=== PATIENT | male | born 1945 | race Caucasian/White ===

== ENCOUNTER → 2020-06-14 | Outpatient (CLI) | payer OTHER, BC ==
[~2020-06-14] VITALS: Ht 188 cm; Wt 146.9 kg
[~2020-06-14] MED LIST: AMOXICILLIN 50500 MG PO; ASPIRIN325 PO; CARVEDILOL3.125 MG PO; COZAAR 25 MG TA25 M1 PO; FISH OIL 1,2001 EACH PO; FUROSEMIDE 40 M40 MG PO; GLIMEPIRIDE4 MG PO; HUMALOG JU100 UNIT/1 SUBQ; IMDUR 30 MG TAB30 M1 PO; JARDIANCE25 MG PO; LANTUS100 UNIT/M SUBQ; NEURONTIN100 MG PO; NITROSTAT0.4 M1 SUBLING; NORCO 5-325 TA1 EAC2 PO; OMEPRAZOLE 20 M20 M1 PO; RELAFEN500 M1 PO; RESTASIS1 EACH OPHTHALMIC
[2020-06-14 08:40] VITALS: BP 185/75
--- NOTE | 2020-06-14 08:52 | NUR ---
Pain Clinic Assessment: 1. History of Osteoarthritis: Not Applicable History of Rheumatoid Arthritis: Not Applicable 2. Height: 6 ft. 2 in. 188.0 cm. Weight: 323.8 lb. oz. 146.875 kg. Patient's BMI: 41.6 3. Vital Signs: BP: 185/75 Pulse: 108 Resp: 18 Temp: 02 Sat: 95 ECG Mon: 4. Pain Intensity: 7-9 5. Fall Risk: Dizziness: N Needs help standing or walking: N Fallen in the last 3 months: N Fall risk comments: 6. Patient on Blood Thinner: None 7. History of Hypertension: Y 8. Opioid Therapy greater than 6 weeks: Y Opiate Contract Signed: 9. Risk Assessment Tool Provided: 10. Functional Assessment Tool: 0 11. Recreational Drug Use: Never Drug Type: Tobacco Use: Never Smoker Tobacco Type: Amount or Packs/day: How Many Years: Alcohol Use: Yes Frequency: Monthly Quant: 2
--- NOTE | 2020-06-14 14:37 | HPC ---
[facility] [place] [address] PAIN MANAGEMENT CONSULTATION Name: ALYSSA HANSON Room #: REG PAM Eddi.#: [id number] Admission: 06/14/20 Attend Phys: Mode Phillips DO Discharge: Date of : 47 Report #: [id number] THIS REPORT FOR: cc: SEAMUS DIXON Physician not on staff Mode Phillips DO ~ DATE OF SERVICE: 06/14/2020 REFERRING PHYSICIAN: Dr. Seamus Dixon. CHIEF COMPLAINT: Bilateral knee pain. HISTORY OF PRESENT ILLNESS: As you know, the patient is a very pleasant 75-year-old male who reports a near 2-year history of ongoing bilateral knee pain. The patient has undergone total knee arthroplasty on the left, approximately 12/2018 with improvement in his typical pain, but continues to experience symptoms that he rates at a level of 7/10 from a pain standpoint, exacerbated with any type of movement and weightbearing. He continues to experience right knee pain due to progressively worsening osteoarthritic changes. The patient is concerned about a total knee arthroplasty on the right, given his lack of improvement on the left. He states he has followed up with his orthopedic surgeon and they have advised him that the positioning of the device appears appropriate in the left knee. He has been referred to our service to discuss options for treatment. He is denying any specific injury or trauma to either of the knees. He has had a slow and progressive worsening of osteoarthritic changes, which have been diagnosed in the past. He is currently taking conservative treatment via oral medications with minimal benefit. The patient reports today his pain is continuous. He describes the pain as more of an aching and sharp sensation. He places current pain score 7/10, daily average at 7/10, worst pain has been is 9/10. The patient states the pain is exacerbated with "sitting long periods of time and weightbearing such as walking." He states pain is improved with CBD oil, but only for a short period of time. He has been referred to our service to discuss interventional treatment options to address bilateral knee pain. PAST MEDICAL HISTORY: 1. Diabetes mellitus type 2. 2. Hypertension. 3. Coronary artery disease. 4. History of colon cancer. 5. Morbid obesity. 6. Osteoarthritis. PAST SURGICAL HISTORY: 1. Appendectomy. [address] [address] PAIN MANAGEMENT CONSULTATION Name: ALYSSA HANSON Room #: REG [facility].Rose.#: [id number] Admission: 06/14/20 Attend Phys: Mode Phillips DO Discharge: Date of : 47 Report #: [id number] 2. Colon resection secondary to cancer. SOCIAL HISTORY: The patient denies tobacco, alcohol, IV or illicit drug use. 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 He is working, not receiving workmen's compensation nor is he trying to obtain discrete benefits. He is accompanied by his present in room today. IMAGING: There is no imaging available. PAIN SCORE: Pain impact score 35/70, indicating moderate interference of daily activities secondary to pain. 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 All other review of systems negative per 12-point review of systems other than those listed in history of present illness. ALLERGIES: MORPHINE AND STATINS. CURRENT MEDICATIONS: Restasis 1 drop each eye per day, aspirin 325 mg per day, omega-3 fish oil 1 tablet per day, amoxicillin 500 mg p.r.n. prior to procedures, Jardiance 25 mg once a day, carvedilol 3.125 mg b.i.d., omeprazole 20 mg per day, nitroglycerin p.r.n., glimepiride 4 mg b.i.d., Humalog sliding scale 12 units typical, Lantus 40 units subcutaneous twice a day, furosemide 40 mg per day, losartan 50 mg per day, isosorbide dinitrate 30 mg once a day, gabapentin 100 mg t.i.d., hydrocodone/acetaminophen 5/325 one tablet p.o. q.6 hours p.r.n. pain. PQRS: The patient has known arthritic changes of the bilateral knees, status post left total knee arthroplasty, bilateral hip osteoarthritis, bilateral shoulder osteoarthritis and lumbar spine osteoarthritis. No rheumatoid arthritis. He is placing current pain score of 7-9/10. He is not a fall risk, has not had a fall in last 3 months. He is not on blood thinners, but is treated for hypertension. He is on chronic opioids, has a low opiate addiction potential based on our assessment tool. Pain impact 35/70. PHYSICAL EXAMINATION: VITAL SIGNS: Blood pressure 185/75, pulse 108, respiratory rate 18 and unlabored. The patient is 95% on room air. Height 6 feet 2 inches tall, weight 223.8 pounds and BMI calculated 41.6. GENERAL: Well-developed, well-nourished, well-hydrated, class III, morbidly obese 75-year-old male appearing his stated age. He is in no acute distress, [address] [address] PAIN MANAGEMENT CONSULTATION Name: ALYSSA HANSON Room #: REG [facility].#: [id number] Admission: 06/14/20 Attend Phys: Mode Phillips DO Discharge: Date of : 47 Report #: [id number] awake, alert and oriented x 3. Current pain score is rated 7-9/10. HEENT: Normocephalic and atraumatic. Pupils are equal, round and reactive. NEUROLOGIC: Speech is fluent. The patient is wearing a mask in compliance with COVID-19 regulations. LUNGS: Appear clear. No wheezes, rhonchi or rales. CARDIOVASCULAR: Tachycardic without appreciable gallop or rub. ABDOMEN: Soft, obese. Bowel sounds are present. EXTREMITIES: Show no clubbing, no appreciable cyanosis or edema. MUSCULOSKELETAL: Active and passive range of motion of the left knee is met with increasing pain on the lateral aspect of that knee. There does not appear to be any pain generated with maneuver on the medial aspect of the knee. There are well-healed surgical scars over the left knee consistent with a total knee arthroplasty. Weightbearing from a seated position cause intensification of pain directly over the lateral aspect of the left knee. Active and passive range of motion of the right knee, met with crepitus and increasing pain. There is limitation of motion. Pain is elicited with standing from a seated position on the right as well. The collateral ligaments, both medial and lateral appeared intact on the right. There is no laxity on the left. Drawer test negative. ASSESSMENT: 1. Bilateral knee pain. 2. Continued pain, status post left total knee arthroplasty. 3. Right knee osteoarthritis. 4. Right knee pain. PLAN: 1. Based on today's physical exam and history the patient has provided, the description the patient uses in regard to pain as well as those provocating factors that lead to increasing pain. It would appear the patient is suffering from 2 different pain generators on the right. It is a continued osteoarthritic pain due to "bone on bone degeneration." The patient has been advised a total knee arthroplasty would be recommended, but given his lack of improvement with the left total knee arthroplasty, he is not considering this as an option at present. We discussed with the patient treatment options to address the right knee pain. We also discussed the options to treat the left knee pain status post total knee arthroplasty with failure secondary to continued pain, specifically laterally. The following was discussed with the patient. In regard to the left knee where the total knee arthroplasty was completed. Treatment options are somewhat limited, but could include the following, these could include physical therapy, stretching exercises and continued mobility on that knee in essence to desensitize the patient to the symptoms he is experiencing laterally. We discussed suggestions in medication management can be fulfilled through his primary care team. These would be either continuation of pain medications or the addition of a nonsteroidal anti-inflammatory in [address] [address] PAIN MANAGEMENT CONSULTATION Name: ALYSSA HANSON Room #: REG CLBrown Nixon#: [id number] Admission: 06/14/20 Attend Phys: Mode Phillips DO Discharge: Date of : 47 Report #: [id number] conjunction with his current pain medications. We discussed genicular nerve blocks with possible radiofrequency lesioning of the genicular nerves, which tend to improve pain, status post total knee arthroplasty. We also discussed a revision of the total knee arthroplasty. After reviewing risks and benefits, the patient chose to begin with adjustments in medication management. In regard to the patient's right knee pain, treatment options would include physical therapy, stretching exercises and a weight loss as a treatment course. We discussed medication management adding a nonsteroidal anti-inflammatory in conjunction with current pain medication. We discussed intra-articular knee injections with steroids and possibly intra-articular knee injections with Synvisc as a treatment course. We also discussed surgical procedures with the patient, which based on his recollection of imaging will likely be necessary. After reviewing the risks and benefits of all the proposed treatment options in regard to the right knee, he chose to begin with medication management. 2. I recommend the patient follow up with his orthopedic surgeon in regard to his ongoing left knee pain the fact that he is a year and a half out and continues to experience lateral knee pain. There may be a stability issue or possibly alignment issue that needs to be addressed. The patient indicates that he has discussed this with his orthopedic surgeon before and they felt there was no concerning findings. I have recommended the possibility of a second opinion in regard to this issue. The patient is agreeable and would like a referral for a second opinion in regard to the left knee, but also to discuss options from a surgical standpoint to address the right knee issue. We have agreed to provide the patient with a referral to Dr. Wilian Quintero. He was given the referral today. He will contact Dr. Quintero in the office at his earliest convenience to make an appointment to be evaluated. 3. The patient will be sent for x-ray imaging of both the left and right knees. This will complete the evaluation for Dr. Quintero. The patient will undergo the x-ray imaging as quickly as possible. I have advised the patient to take the disk of the imaging with him to Dr. Quintero's office for evaluation and review. The patient will undergo x-ray imaging at his earliest convenience. 4. We will start the patient on nabumetone 500 mg dose 1 tablet p.o. t.i.d. I have given the patient a 500 mg tablet to take 3 times a day with meals. I have advised the patient to watch for side effects of dyspepsia, worsening of blood pressure, lower extremity edema. If he notes any side effects, discontinue immediately. He can contact our clinic with any questions or concerns. We did advise the patient of the theoretical risk of nonsteroidal anti-inflammatories on cardiovascular health. He understands his risks and wishes to try the medication to determine if his symptoms can improve. 5. We will contact the pain management clinic in [place] and in [place], [place], two of the physicians in those facilities to perform genicular nerve blocks and radiofrequency lesioning of the genicular nerves. We will contact their clinic and determine which would be the most convenient for the patient. We will then have the patient seen to discuss those options for treatment if he [address] [address] PAIN MANAGEMENT CONSULTATION Name: ALYSSA HANSON Room #: REG PAM Nixon#: [id number] Admission: 06/14/20 Attend Phys: Mode Phillips DO Discharge: Date of : 47 Report #: [id number] wishes to do so. We have provided the patient with the name of these 2 physicians, but will contact him later today to advise which we would recommend to be seen from a convenient standpoint, but also performed this procedure. 6. We wish to thank the referring physician for the opportunity to see this patient in consultation. We will keep you apprised of response to treatment as we address bilateral knee pain due to osteoarthritis and failed left total knee arthroplasty. Again, we wish to thank you for the opportunity to see the patient in consultation. <ELECTRONICALLY SIGNED> By: Mode Phillips DO 06/14/20 [id number] Mode Phillips DO /nt
== END ==
LOC: PAIN 06:47
PROVIDERS: ATTEND Anesthesiology Pain Medicine
DX: M17.11 Unilateral primary osteoarthritis, right knee (principal); M25.562 Pain in left knee; Z88.8 Allergy status to other drugs, medicaments and biological substances; Z79.899 Other long term (current) drug therapy